=== PATIENT | female | born 1960 | race Caucasian/White ===

== ENCOUNTER → 2023-07-19 08:25 | Outpatient (REF) | payer OTHER, SELFPAY | LOC: RAD 08:25 | PROVIDERS: ATTENDING PHYSICIAN Internal Medicine Gastroenterology; FAMILY PHYSICIAN Family Medicine | DX: R10.13 Epigastric pain (principal) | CPT/HCPCS: 74246 ==

== ENCOUNTER 2023-08-17 22:36 | Emergency (ER) | payer OTHER, SELFPAY ==
[2023-08-17 22:40] VITALS: BP 166/80
--- NOTE | 2023-08-17 23:30 | ED.GENMED ---
History of Present Illness
General
Chief Complaint: Back Pain
Source: patient
Exam Limitations: none
Time Seen by Provider: 08/17/23 23:17
Nursing documentation reviewed up to this point in time: agreed with
Travel History
Have you had any contact with someone who has COVID-19?: No
Do you have any symptoms of coronavirus? Fever > 100 degrees, chills, cough, shortness of breath, sore throat, loss of taste or smell, muscle aches, or headache?: No
History of Present Illness
History of Present Illness:
Patient is a 63-year-old female who presents to the ER for evaluation of back pain. Patient reports around 3 PM she went to lift something and she tweaked her back. She complains of pain with range of motion with movement with bending over and
when she stands and walks that radiates down her right leg. She did take Advil at 10:00 without relief. She denies any numbness tingling weakness lower extremities denies any loss of bowel or bladder.
Review of Systems
Review of Systems
Allergies reviewed?: Yes
All Other Systems: ROS reviewed and negative except as documented in HPI and ROS
Constitutional: Reports no symptoms
: Denies incontinence
Musculoskeletal: Reports back pain and other (pain radiates to right leg )
Skin: Reports no symptoms
Neurological: Reports other (denies weakness in l/e ); Denies numbness
Psychiatric: Reports no symptoms
Phy Exam
General Physical Exam
General Presentation: no apparent distress
General age: appears stated age
General Skin: warm and dry
General Habitus: normal
General Mental: alert
General Hydration: appears well hydrated
Neurological Exam
Neurological Exam: alert, oriented x3, no motor deficits, no sensory deficits and other (Normal dorsal flexion Plantar flexion Normal Distal Sensation Bilaterally)
Musculoskeletal Exam
Musculoskeletal Exam: other ( tenderness to right lumbar region no midline or CvA tenderness pain with movement )
Skin Exam
Skin Exam: normal color and warm/dry
Psychiatric Exam
Psychiatric Exam: normal mood/affect
Course
Orders/Labs/Results
Orders:
Orders
08/17/23 23:30
Acetaminophen [Tylenol] 650 mg PO NOW STA
Dexamethasone Sod Phosphate [Decadron] 10 mg IM NOW STA
diazePAM [Valium Injection] 5 mg IM NOW STA
08/18/23 01:06
Vital Signs- Treatment ONCE
Frequency: Once
Vital Signs
Initial and Last Documented VS:
Initial Vital Signs
Temp Pulse Resp BP Pulse Ox
97.8 F 72 18 166/80 100
08/17/23 22:40 08/17/23 22:40 08/17/23 22:40 08/17/23 22:40 08/17/23 22:40
Last Documented Vital Signs
Temp Pulse Resp BP Pulse Ox
97.8 F 70 16 114/77 99
08/17/23 22:40 08/18/23 01:08 08/18/23 01:08 08/18/23 01:08 08/18/23 01:08
MDM/Problems Addressed
Differential Diagnosis Includes:
Not limited to muscle strain, sciatica
MDM/Problems Addressed:
Symptoms are consistent with lumbar strain, sciatica. Patient has no weakness to lower extremity no numbness tingling normal doses sensation or bowel or bladder continence. Patient was given Valium here along with Decadron and Tylenol feeling much
better will DC with a prescription for Valium as this has worked for her. She has a prescription of Flexeril at home I did tell her not to use this. In addition she will be sent home a prescription for steroids. Discussed close outpatient
follow-up
*Critical Care Note
Total Time (30-74mins, 75-104mins- exclusive of procedures): Not Applicable
ED Attending Note
-
Portions of this chart may have been created with voice recognition software.� Occasional wrong word or��sound alike� substitutions may have occurred due to the inherent limitations of voice recognition software.
Discharge Plan
Departure
Patient Disposition: Home (Routine Discharge)
Date of Disposition: 08/18/23
Time of Disposition: 01:06
Patient with high blood pressure during this ER visit?: Yes
Condition: Fair
Covid-19: Not Applicable
Discharge Problem:
Muscle spasm, Sciatic pain
Instructions: Low Back Pain (DC), Sciatica (DC), BLOOD PRESSURE
Prescriptions:
New
prednisone 50 mg tablet
50 mg PO DAILY Qty: 5 0RF
diazepam [Valium] 5 mg tablet
5 mg PO TID PRN (Reason: muscle spasm) Qty: 10 0RF
Referrals:
Micah Child MD [Family Provider] -
Activity Restrictions/Additional Instructions:
As discussed ice the affected area for the first 24 hours 20 minutes at a time several times a day from the warm moist heat. A prescription for Valium was sent to your pharmacy to take as directed for muscle laxer. No driving or drinking alcohol
taking this medication this medication will cause drowsiness. Also a prescription for prednisone was sent to be taken daily for the next 5 days. Follow-up with your family doctor the next 2 days and return if any worsening of symptoms.
Interventions
Interventions:
*Risk Screen - Suicide Last Done: 08/17/23 22:40
*Neglect/Abuse Screening Last Done: 08/17/23 22:40
Discharge Date and Time
Print Language: [id number]
[2023-08-17] MEDS: VALIUM INJECTION 5 MG IM (23:39)
[2023-08-17] MEDS: DECADRON 10 MG IM (23:39)
[2023-08-17] MEDS: TYLENOL 650 MG PO (23:40)
[2023-08-18 01:08] VITALS: BP 114/77
== END 2023-08-18 01:16 | disposition home or self-care (01) ==
LOC: EMR 22:36
PROVIDERS: EMERGENCY PHYSICIAN Emergency Medicine; FAMILY PHYSICIAN Family Medicine
DX: M54.50 Low back pain, unspecified (principal); M62.838 Other muscle spasm; M79.604 Pain in right leg; R03.0 Elevated blood-pressure reading, without diagnosis of hypertension; K21.9 Gastro-esophageal reflux disease without esophagitis; Z98.1 Arthrodesis status; Z86.16 Personal history of COVID-19
CPT/HCPCS: 99284; 96372 ×2